=== PATIENT | female | born 1970 | race Caucasian/White ===

== ENCOUNTER 2020-03-13 09:08 | Day surgery (SDC) | payer OTHER, SELFPAY ==
[~2020-03-13] VITALS: Ht 160 cm; Wt 99.8 kg
[2020-03-13] MEDS ORDERED: diphenhydrAMINE 50 MG/ML VIAL ONE (12:05)
[2020-03-13] MEDS ORDERED: fentaNYL citrate 0.05 MG/ML VIAL ONE (12:05)
[2020-03-13] MEDS ORDERED: MIDAZOLAM 5 MG/5 ML VIAL ONE (12:05)
[2020-03-13] MEDS: MIDAZOLAM 2 MG/2 ML VIAL IVP ONE (12:07)
[2020-03-13] MEDS: fentaNYL citrate 0.05 MG/ML VIAL IVP ONE (12:08)
[2020-03-13] MEDS: LIDOCAINE 2% 100 MG/5 ML UJET TP ONE (12:11)
== END 2020-03-13 13:00 | disposition home or self-care (01) ==
LOC: MDS 09:08 → MMU 09:08 → MDS 13:00
PROVIDERS: ATTEND Internal Medicine Gastroenterology
DX: K59.00 Constipation, unspecified (principal); K63.5 Polyp of colon; K57.30 Diverticulosis of large intestine without perforation or abscess without bleeding; Z98.84 Bariatric surgery status; Z98.890 Other specified postprocedural states; Z20.828 Contact with and (suspected) exposure to other viral communicable diseases
CPT/HCPCS: 45385; J2250; J3010; U0003; J1200